=== PATIENT | female | born 1990 | race Asian ===

== ENCOUNTER 2020-06-23 23:03 | Inpatient (IN) ==
[2020-06-23 23:49] LABS: Hematocrit 35 % (35-47); Hemoglobin 12.2 g/dL (12.0-16.0); Mean Corpuscular HGB Conc 35 g/dL (31-36); Mean Corpuscular Hemoglobin 33 pg (27-31); Mean Corpuscular Volume 95 fL (80-97); Platelet Count 181 10^3/uL (150-450); Red Blood Count 3.69 10^6 /uL (3.70-4.87); Red Cell Distribution Width 13 % (10-15); White Blood Count 7.4 10^3/uL (3.5-10.8)
[2020-06-24] MEDS ORDERED: Lactated Ringers 1000 ml BAG 1,000 ML IV ONE ×2 (00:19→07:45)
[2020-06-24 00:36] LABS: Urine Benzodiazepine Screen None Detected (None Detect); Urine Opiates Screen None Detected (None Detect)
[2020-06-24] MEDS ORDERED: Penicillin G Potassium IV 5,000,000 UNITS in NS 0.9% 100 ml BAG 100 ML IVPB ONE (01:00)
[2020-06-24] MEDS: Lactated Ringers 1000 ml BAG 1,000 ML IV SCH ×3 (02:00→17:36)
[2020-06-24] MEDS: NS 0.9% IVPB SCH ×4 (04:29→16:35)
[2020-06-24] MEDS: PENICILLIN POTASSIUM IVPB SCH ×4 (04:29→16:35)
[2020-06-24] MEDS ORDERED: OBEPIDURAL 250 ML EPIDURAL ONE (06:52)
[2020-06-24] MEDS ORDERED: Phenylephrine 40 mcg/mL 10mL (400mcg) SYRINGE IV PUSH PRN ×2 (07:45)
[2020-06-24] MEDS ORDERED: Lactated Ringers 1000 ml BAG 500 ML IV PRN (07:45)
[2020-06-24] MEDS ORDERED: EPHEDrine (Pressors) 50 MG/ML VIAL IV PUSH PRN ×2 (07:45)
[2020-06-24] MEDS ORDERED: Sodium Citrate/Citric Acid LIQ 15 ML UDC PO PRN (07:45)
[2020-06-24] MEDS ORDERED: Lactated Ringers 1000 ml BAG 1,000 ML IV SCH ×2 (08:00→20:00)
[2020-06-24] MEDS ORDERED: OBEPIDURAL 250 ML EPIDURAL SCH (08:00)
[2020-06-24] MEDS ORDERED: Oxytocin in LR 20 UNITS/1,000 ML BAG IVPB SCH (12:00)
[2020-06-24] MEDS ORDERED: diPHENhydraMINE IV 50 MG/ML 1 ml VIAL (BENADRYL) IV ONE (14:37)
[2020-06-24] MEDS: Ampicillin ADVAN 2 GM in NS 0.9% 100 ml BAG 100 ML IVPB SCH (17:09)
[2020-06-24] MEDS ORDERED: Clindamycin 900 MG/D5W BAG 900 MG/50 ML BAG IVPB ONE ×2 (17:47→17:48)
[2020-06-24] MEDS ORDERED: Gentamicin ADULT 285 MG in NS 0.9% 100 ml BAG 100 ML IVPB ONE (18:00)
[2020-06-24] MEDS ORDERED: Morphine PF AMP (0.5MG/ML) 5 MG/10 ML AMP ONE (18:34)
[2020-06-24] MEDS ORDERED: Lidocaine 2% PF 10 ML AMP ONE (18:46)
[2020-06-24] MEDS ORDERED: Ondansetron 4 mg VIAL 2 MG/ML 2 ml VIAL ONE (18:46)
[2020-06-24] MEDS ORDERED: Oxytocin 10 UNITS/ML 1 ML VIAL ONE (18:46)
[2020-06-24] MEDS ORDERED: Phenylephrine 40 mcg/mL 10mL (400mcg) SYRINGE ONE (18:46)
[2020-06-24] MEDS ORDERED: HYDROmorphone 1 MG/1 ML SYRINGE IV PRN (18:49)
[2020-06-24] MEDS ORDERED: DiMENhydriNATE IV 50 mg/ml 1 ml VIAL IV PUSH PRN (18:49)
[2020-06-24] MEDS ORDERED: oxyCODONE/Acetamin 5/325 mg TAB PO PRN (18:49)
[2020-06-24] MEDS ORDERED: Naloxone 0.4 mg VIAL 0.4 mg/ml 1 ml VIAL IV PRN ×2 (18:49→18:50)
[2020-06-24] MEDS ORDERED: Ondansetron 4 mg VIAL 2 MG/ML 2 ml VIAL IV PRN (18:50)
[2020-06-24] MEDS ORDERED: diPHENhydraMINE IV 50 MG/ML 1 ml VIAL (BENADRYL) IV PRN (18:50)
[2020-06-24] MEDS ORDERED: DiMENhydriNATE IV 50 mg/ml 1 ml VIAL ONE (18:54)
[2020-06-24] MEDS ORDERED: HYDROmorphone 0.5 MG/0.5 ML SYRINGE IV PRN (19:00)
[2020-06-24] MEDS ORDERED: Witch Hazel PAD JAR TOPICAL PRN (19:34)
[2020-06-24] MEDS ORDERED: Dibucaine 1% OINT 28.35 GM TUBE PR PRN (19:34)
[2020-06-24] MEDS ORDERED: Glycerin ADULT 2.4 gm SUPP PR PRN (19:34)
[2020-06-24] MEDS: oxyCODONE/Acetamin 5/325 mg TAB PO PRN (22:25)
[2020-06-25] MEDS: Ampicillin ADVAN 2 GM in NS 0.9% 100 ml BAG 100 ML IVPB SCH ×4 (00:06→17:39)
[2020-06-25] MEDS: oxyCODONE/Acetamin 5/325 mg TAB PO PRN ×2 (06:04→10:27)
[2020-06-25 07:43] LABS: ABS Lymphocytes 0.8 10^3/ul (1.0-4.8); ABS Monocytes 0.6 10^3/ul (0-0.8); ABS Neutrophils 11.4 10^3/ul (1.5-7.7); Eosinophil % 0.1 %; Hematocrit 23 % (35-47); Hemoglobin 7.9 g/dL (12.0-16.0); Lymphocyte % 5.9 %; Mean Corpuscular HGB Conc 35 g/dL (31-36); Mean Corpuscular Hemoglobin 33 pg (27-31); Mean Corpuscular Volume 97 fL (80-97); Mean Platelet Volume 9.2 fL (7.4-10.4); Platelet Count 133 10^3/uL (150-450); Red Blood Count 2.36 10^6 /uL (3.70-4.87); Red Cell Distribution Width 14 % (10-15); White Blood Count 12.8 10^3/uL (3.5-10.8)
[2020-06-26 06:25] LABS: ABS Lymphocytes 0.9 10^3/ul (1.0-4.8); ABS Monocytes 0.5 10^3/ul (0-0.8); ABS Neutrophils 10.7 10^3/ul (1.5-7.7); Eosinophil % 0.3 %; Hematocrit 22 % (35-47); Hemoglobin 7.7 g/dL (12.0-16.0); Lymphocyte % 7.7 %; Mean Corpuscular HGB Conc 34 g/dL (31-36); Mean Corpuscular Hemoglobin 33 pg (27-31); Mean Corpuscular Volume 96 fL (80-97); Mean Platelet Volume 9.2 fL (7.4-10.4); Platelet Count 152 10^3/uL (150-450); Red Blood Count 2.34 10^6 /uL (3.70-4.87); Red Cell Distribution Width 14 % (10-15); White Blood Count 12.2 10^3/uL (3.5-10.8)
[2020-06-27 07:57] VITALS: BP 105/51
== END 2020-06-27 14:25 | disposition home or self-care (01) | DRG 540 ==
LOC: MCHOBOUT 23:03 → MCHOB 23:38
PROVIDERS: ADMIT Midwife; ATTEND Obstetrics & Gynecology